=== PATIENT | female | born 2005 ===

== ENCOUNTER 2025-06-18 12:59 | Emergency (ER) | payer OTHER, BC ==
[~2025-06-18] VITALS: Ht 152.4 cm; Wt 49.2 kg
[2025-06-18] MEDS ORDERED: NAPROXEN250 M1 PO (14:44)
[2025-06-18] MEDS ORDERED: Naproxen 250 MG TAB PO ONE (14:45)
== END 2025-06-18 14:53 | disposition home or self-care (01) ==
LOC: ER 12:59
DX: S16.1XXA Strain of muscle, fascia and tendon at neck level, initial encounter (principal); V89.2XXA Person injured in unspecified motor-vehicle accident, traffic, initial encounter
CPT/HCPCS: 99283; A9270